=== PATIENT | female | born 1940 | race Caucasian/White ===

== ENCOUNTER → 2018-08-12 13:00 | Oncology outpatient (ONC) | payer OTHER, SELFPAY ==
--- NOTE | 2018-04-15 15:50 | P.CONONC_ITS ---
History of Present Illness - Data of Consult Patient: new to practice Consult date: 04/15/18 Requesting Physician: Eden Zacarias PA-C Primary Care Provider: Eden Zacarias PA-C - Consult Narrative Reason for consult: neutropenia Narrative: Nelida Acosta is a 78 year old female medical comorbidities most notable for hypertension, afib and hyperlipidemia. Patient has been followed by her primary care provider Eden pak for quite a few years. Patient has been getting labs probably about once every 6 months. On September 11, 2017, CBC showed WBC 3.1, ANC 1.4, hemoglobin 12.8, hematocrit 37.7. Follow-up testing on March 14, 2018 showed WBC 2.8, absolute neutrophil count 1.2, hemoglobin 12.3 , hematocrit 37.5, and platelets 259. Given the declining total white blood cell count and ANC, patient was referred to Hematology for further evaluation. Patient said that except for aspirin which was recently started because of atrial fibrillation, patient has not taking any new medications. He has been taking losartan metoprolol and simvastatin for a long period of time. Patient reported that she feels a little bit more fatigue but not much. The patient thought that it might be due to the atrial fibrillation. 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. Patient has yet to identify another furniture upholsterer apprentice for follow- up. Patient denies any fever or chills. He denies any shortness of breath or chest pain. He denies any diarrhea. Patient reports mild constipation and is using probiotics with some effect. Patient reports pain?: No Home Medications and Allergies Home Medications Medication Instructions Recorded Confirmed Type Losartan/HCTZ (Hyzaar 50-12.5 1 tab PO Q DAY #0 07/20/10 History Tablet) Simvastatin (Zocor) 40 mg PO HS #0 07/20/10 History L. acidophilus-L. rhamnosus 04/15/18 History [Probiotic] ascorbic acid (vitamin C) [Vitamin 500 mg PO DAILY 04/15/18 04/15/18 History C] aspirin 325 mg PO DAILY 04/15/18 04/15/18 History cholecalciferol (vitamin D3) 2,000 unit PO DAILY 04/15/18 04/15/18 History [Vitamin D3] diazepam [Valium] 2 mg PO Q8H PRN 04/15/18 04/15/18 History fexofenadine 180 mg PO DAILY 04/15/18 04/15/18 History ibuprofen-diphenhydramine cit 2 cap PO BEDTIME PRN 04/15/18 04/15/18 History [Advil PM] metoprolol tartrate 12.5 mg PO PRN PRN 04/15/18 04/15/18 History Allergies Allergy/AdvReac Type Severity Reaction Status Date / Time Penicillins [PENICILLINS] Allergy Unknown Unverified 09/12/17 11:55 Medical History - Medical, Surgical, Family History Medical History: Medical History (Last Reviewed 04/15/18 @ 17:59 by Damian Espinoza MD) Allergic rhinitis, seasonal Atrial fibrillation with RVR Basal cell carcinoma (BCC) of eyelid Onset Date: ~04/2003 History of uterine fibroid Onset Date: ~1990 Hyperlipidemia Hypertension PMR (polymyalgia rheumatica) Surgical History: Surgical History (Last Reviewed 04/15/18 @ 17:59 by Damian Espinoza MD) H/O laparoscopy Onset Date: ~1990 History of left cataract surgery Onset Date: ~09/2015 History of right cataract surgery Onset Date: ~10/2015 Family History: Family History (Last Reviewed 04/15/18 @ 17:59 by Damian Espinoza MD) Father Congestive heart failure Mother COPD (chronic obstructive pulmonary disease) Review of Systems All systems PM: reviewed and no additional remarkable complaints except as stated Exam Vital signs: Temp 98.0 F 04/15/18 16:06 Pulse 59 L 04/15/18 16:06 Resp 18 04/15/18 16:06 BP 154/70 H 04/15/18 16:06 Pulse Ox 98 04/15/18 16:06 ECOG 1 - Constitutional positive no acute distress, positive average body habitus, positive cooperative - Routine HEENT Exam Head: Present: normocephalic, atraumatic Eye: Present: EOMI, PERRL, normal accommodation. Absent: conjunctival icterus ENT: Present: mucous membranes moist - Routine Neck Exam Present: supple. Absent: lymphadenopathy, thyromegaly, tracheal deviation - Routine Respiratory Exam Present: Clear to auscultation bilaterally. Absent: accessory muscle use, rales , respiratory distress, rhonchi, stridor, wheezes, crackles - Routine Cardiovascular Exam Present: RRR, S1, S2. Absent: murmur, gallop, rubs - Routine Abdominal Exam Present: soft, normoactive bowel sounds. Absent: organomegaly - Routine Neurological Exam Present: alert, oriented X3, CN II-XII intact, moving all extremities, normal tone, normal speech. Absent: sensory deficit, motor deficit - Routine Psychiatric Exam Present: normal affect, normal thought process, cooperative, good insight, good judgment Results - Labs Reviewed. See HPI Assessment and Plan (1) Neutropenia Problem details: Labs findings without associated signs or symptoms: On September, WBC 3.1, ANC 1.4, hemoglobin 12.8, hematocrit 37.7. Follow-up testing on March 14, 2018: WBC 2.8, absolute neutrophil count 1.2, hemoglobin 12.3, hematocrit 37.5, and platelets 259. Assessment: I reviewed the available laboratory tests with the patient. Clinically patient does not have any evidence of opportunistic infection. I explained to the patient that the most common cause for neutropenia is medications. However patient said that except for aspirin, she is not taking any new medications. Next I talked with her that vitamin B12 and folic acid deficiency sometimes also are associated with neutropenia. If there is no evidence of the above, primary hematological disorder is a differential diagnosis including multiple myeloma, or myelodysplastic syndrome etc. We will obtain screening laboratory tests first, and then will decide if bone marrow aspiration biopsy is indicated. Plan: 1. CBC, CMP, B2M, LDH, SPEP, B12, folic acid 2. RTC in 2-3 weeks for follow up visit to discuss if BMA/Bx is indicated.
[2018-04-15 16:06] VITALS: BP 154/70; PULSE 59; RESP 18; TEMP 36.7; O2SAT 98
[2018-04-16 14:19] LABS: Add Manual Diff / Slide Review NO; Basophils Percent Auto 0.9 % (0-2); Eosinophils Percent Auto 2.3 % (2-4); Hematocrit 36.5 % (36-46); Hemoglobin 12.5 g/dL (12.0-16.0); Lymphocytes Percent Auto 24.8 % (25-40); Mean Corpuscular HGB Conc 34.2 % (30-36); Mean Corpuscular Hemoglobin 31.5 PG (26-34); Mean Corpuscular Volume 92.1 fL (80-100); Monocytes Percent Auto 14.3 % (3-14); Neutrophils Absolute Auto 2200 /uL (3000-5900); Neutrophils Percent Auto 57.7 % (50-75); Platelet Count 239 X10^3/uL (150-400); Red Blood Cell Count 3.96 X10^6/uL (4.0-5.2); Red Cell Distribution Width 12.8 % (11.6-14.8); White Blood Cell Count 3.8 X10^3/uL (4.5-11.0)
[2018-04-16 14:35] LABS: Alanine Aminotransferase 21 IU/L (9-52); Albumin 4.6 g/dL (3.5-5.0); Albumin Globulin Ratio 1.8 (1.0-2.8); Alkaline Phosphatase 42 U/L (38-126); Aspartate Aminotransferase 25 IU/L (14-36); BUN Creatinine Ratio 21.3 (6-22); Bilirubin Total 0.5 mg/dL (0.2-1.3); Blood Urea Nitrogen 17 mg/dL (7-17); Calcium 9.2 mg/dL (8.4-10.2); Carbon Dioxide 29 mmol/L (22-32); Chloride 92 mmol/L (98-107); Estimated Glomerular Filt Rate > 60.0 mL/min (>60); Globulin 2.6 g/dL (1.7-4.1); Glucose 98 mg/dL (80-110); HEMOLYSIS < 15 (0-50); Lactate Dehydrogenase 397 U/L (313-618); Potassium 3.1 mmol/L (3.4-5.1); Sodium 135 mmol/L (137-145); Total Protein 7.2 g/dL (6.3-8.2)
[2018-04-16 15:41] LABS: Folate 14.7 ng/mL (2.76-20.0); Vitamin B12 604 pg/mL (239-931)
[2018-04-18 21:11] LABS: Beta-2-Microglobulin 2.19 mg/L (< 2.52)
[2018-04-18 21:29] LABS: Albumin 4.2 g/dL (3.8-4.8); Alpha 1 Globulin 0.3 g/dL (0.2-0.3); Alpha 2 Globulin 0.6 g/dL (0.5-0.9); Beta 1 Globulin 0.4 g/dL (0.4-0.6); Gamma Globulin 0.8 g/dL (0.8-1.7); Protein, Total 6.6 g/dL (6.1-8.1)
--- NOTE | 2018-04-22 16:17 | P.PNONC_ITS ---
PN -Subjective Interval history: She came here today for follow-up visit. Patient has a recently found mild neutropenia of unknown etiology. Patient reports no fever and no chills. No nausea no vomiting. No abdominal pain no diarrhea and no constipation. She had blood work done on 04/16/2018. The total white cell count is 3.8, ANC 2.2. Vitamin B12 folic acid level are normal. Serum protein electrophoresis is normal pattern. Oncological history Nelida Acosta is a 78 year old female medical comorbidities most notable for hypertension, afib and hyperlipidemia. Patient has been followed by her primary care provider Eden pak for quite a few years. Patient has been getting labs probably about once every 6 months. On September 11, 2017, CBC showed WBC 3.1, ANC 1.4, hemoglobin 12.8, hematocrit 37.7. Follow-up testing on March 14, 2018 showed WBC 2.8, absolute neutrophil count 1.2, hemoglobin 12.3 , hematocrit 37.5, and platelets 259. Given the declining total white blood cell count and ANC, patient was referred to Hematology for further evaluation. Patient said that except for aspirin which was recently started because of atrial fibrillation, patient has not taking any new medications. He has been taking losartan metoprolol and simvastatin for a long period of time. Patient reported that she feels a little bit more fatigue but not much. The patient thought that it might be due to the atrial fibrillation. 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 Patient has yet to identify another circuit court clerk for follow- up. Patient denies any fever or chills. He denies any shortness of breath or chest pain. He denies any diarrhea. Patient reports mild constipation and is using probiotics with some effect. - Additional ROS All systems PM: reviewed and no additional remarkable complaints except as stated Home Medications and Allergies Home Medications Medication Instructions Recorded Confirmed Type Losartan/HCTZ (Hyzaar 50-12.5 1 tab PO Q DAY #0 07/20/10 History Tablet) Simvastatin (Zocor) 40 mg PO HS #0 07/20/10 History L. acidophilus-L. rhamnosus 04/15/18 History [Probiotic] ascorbic acid (vitamin C) [Vitamin 500 mg PO DAILY 04/15/18 04/15/18 History C] aspirin 325 mg PO DAILY 04/15/18 04/15/18 History cholecalciferol (vitamin D3) 2,000 unit PO DAILY 04/15/18 04/15/18 History [Vitamin D3] diazepam [Valium] 2 mg PO Q8H PRN 04/15/18 04/15/18 History fexofenadine 180 mg PO DAILY 04/15/18 04/15/18 History ibuprofen-diphenhydramine cit 2 cap PO BEDTIME PRN 04/15/18 04/15/18 History [Advil PM] metoprolol tartrate 12.5 mg PO PRN PRN 04/15/18 04/15/18 History Allergies Allergy/AdvReac Type Severity Reaction Status Date / Time Penicillins [PENICILLINS] Allergy Unknown Unverified 09/12/17 11:55 Exam Vital signs: Last Vital Signs Temp 98.0 F 04/15/18 16:06 Pulse 59 L 04/15/18 16:06 Resp 18 04/15/18 16:06 BP 154/70 H 04/15/18 16:06 Pulse Ox 98 04/15/18 16:06 ECOG 1 - Constitutional positive no acute distress, positive average body habitus, positive cooperative - Routine HEENT Exam Head: Present: normocephalic, atraumatic Eye: Present: EOMI, PERRL, normal accommodation. Absent: conjunctival icterus ENT: Present: mucous membranes moist - Routine Neck Exam Present: supple. Absent: lymphadenopathy, thyromegaly - Routine Respiratory Exam Present: Clear to auscultation bilaterally. Absent: wheezes - Routine Cardiovascular Exam Present: RRR, S1, S2. Absent: murmur, gallop, rubs - Routine Abdominal Exam Present: soft, normoactive bowel sounds. Absent: tenderness, organomegaly - Routine Extremities Exam Absent: edema - Routine Neurological Exam Present: alert, oriented X3, CN II-XII intact, normal reflexes. Absent: sensory deficit, motor deficit - Routine Psychiatric Exam Present: normal affect, normal thought process, cooperative, good insight, good judgment Results - Labs Laboratory Last Values WBC 3.8 X10^3/uL (4.5-11.0) L 04/16/18 14:00 RBC 3.96 X10^6/uL (4.0-5.2) L 04/16/18 14:00 Hgb 12.5 g/dL (12.0-16.0) 04/16/18 14:00 Hct 36.5 % (36-46) 04/16/18 14:00 MCV 92.1 fL (80-100) 04/16/18 14:00 MCH 31.5 PG (26-34) 04/16/18 14:00 MCHC 34.2 % (30-36) 04/16/18 14:00 RDW 12.8 % (11.6-14.8) 04/16/18 14:00 Plt Count 239 X10^3/uL (150-400) 04/16/18 14:00 Neut % (Auto) 57.7 % (50-75) 04/16/18 14:00 Lymph % (Auto) 24.8 % (25-40) L 04/16/18 14:00 [place] % (Auto) 14.3 % (3-14) H 04/16/18 14:00 Eos % (Auto) 2.3 % (2-4) 04/16/18 14:00 Baso % (Auto) 0.9 % (0-2) 04/16/18 14:00 Neut # (Auto) 2200 /uL (0153-6629) L 04/16/18 14:00 Sodium 135 mmol/L (137-145) L 04/16/18 14:00 Potassium 3.1 mmol/L (3.4-5.1) L 04/16/18 14:00 Chloride 92 mmol/L (98-107) L 04/16/18 14:00 Carbon Dioxide 29 mmol/L (22-32) 04/16/18 14:00 BUN 17 mg/dL (7-17) 04/16/18 14:00 Creatinine 0.80 mg/dL (0.52-1.04) 04/16/18 14:00 Estimated GFR > 60.0 mL/min (>60) 04/16/18 14:00 BUN/Creatinine Ratio 21.3 (6-22) 04/16/18 14:00 Glucose 98 mg/dL (80-110) 04/16/18 14:00 Calcium 9.2 mg/dL (8.4-10.2) 04/16/18 14:00 Total Bilirubin 0.5 mg/dL (0.2-1.3) 04/16/18 14:00 AST 25 IU/L (14-36) 04/16/18 14:00 ALT 21 IU/L (9-52) 04/16/18 14:00 Alkaline Phosphatase 42 U/L (38-126) 04/16/18 14:00 Lactate Dehydrogenase 397 U/L (313-618) 04/16/18 14:00 Serum Total Protein 6.6 g/dL (6.1-8.1) 04/16/18 14:00 Total Protein 7.2 g/dL (6.3-8.2) 04/16/18 14:00 Albumin 4.2 g/dL (3.8-4.8) 04/16/18 14:00 Globulin 2.6 g/dL (1.7-4.1) 04/16/18 14:00 Albumin/Globulin Ratio 1.8 (1.0-2.8) 04/16/18 14:00 Nqeie-2-Ymgokepws 0.3 g/dL (0.2-0.3) 04/16/18 14:00 Vujuy-9-Mngzfbcat 0.6 g/dL (0.5-0.9) 04/16/18 14:00 Xezl-9-Bmvpbmjc 0.4 g/dL (0.4-0.6) 04/16/18 14:00 Dgyi-4-Ihofuyax 0.3 g/dL (0.2-0.5) 04/16/18 14:00 Wkpu-9-Wxeujfeqlejzp 2.19 mg/L (< 2.52) 04/16/18 14:00 Gamma Globulins 0.8 g/dL (0.8-1.7) 04/16/18 14:00 Abnorm Protein Band 1 Not Reportable 04/16/18 14:00 Abnorm Protein Band 2 Not Reportable 04/16/18 14:00 Abn Gamma Band 3 Serum Not Reportable 04/16/18 14:00 PEP Comment See note 04/16/18 14:00 Vitamin B12 604 pg/mL (239-931) 04/16/18 14:00 Folate 14.7 ng/mL (2.76-20.0) 04/16/18 14:00 Assessment and Plan (1) Neutropenia Problem details: Labs findings without associated signs or symptoms: On September, WBC 3.1, ANC 1.4, hemoglobin 12.8, hematocrit 37.7. Follow-up testing on March 14, 2018: WBC 2.8, absolute neutrophil count 1.2, hemoglobin 12.3, hematocrit 37.5, and platelets 259. Assessment: I reviewed the available laboratory tests with the patient. Patient has a normal vitamin B12 and normal fully can see level. Serum protein electrophoresis is also normal. Furthermore white cell count and ANC have increased and almost normalized. I talked with the patient that most likely it is an unknown environmental factor transiently causing fluctuations of the white cell count. I will continue current active surveillance. Plan: 1. RTC in 3 months, check CBC, CMP prior to the visit.
[2018-07-17 15:25] LABS: Add Manual Diff / Slide Review NO; Basophils Absolute Auto 0 /uL (0-100); Eosinophils Absolute Auto 100 /uL (0-450); Eosinophils Percent Auto 1.1 % (2-4); Hematocrit 38.3 % (36-46); Hemoglobin 13.1 g/dL (12.0-16.0); Lymphocytes Absolute Auto 1100 /uL (1100-4500); Lymphocytes Percent Auto 23.6 % (25-40); Mean Corpuscular HGB Conc 34.2 % (30-36); Mean Corpuscular Hemoglobin 31.3 PG (26-34); Mean Corpuscular Volume 91.6 fL (80-100); Monocytes Absolute Auto 500 /uL (0-900); Monocytes Percent Auto 11.2 % (3-14); Neutrophils Absolute Auto 3100 /uL (1500-7000); Neutrophils Percent Auto 63.1 % (50-75); Platelet Count 253 X10^3/uL (150-400); Red Blood Cell Count 4.18 X10^6/uL (4.0-5.2); Red Cell Distribution Width 12.6 % (11.6-14.8); White Blood Cell Count 4.9 X10^3/uL (4.5-11.0)
[2018-07-17 15:40] LABS: Alanine Aminotransferase 22 IU/L (9-52); Albumin 4.6 g/dL (3.5-5.0); Albumin Globulin Ratio 1.6 (1.0-2.8); Alkaline Phosphatase 43 U/L (38-126); Aspartate Aminotransferase 27 IU/L (14-36); BUN Creatinine Ratio 15.6 (6-22); Bilirubin Total 0.6 mg/dL (0.2-1.3); Blood Urea Nitrogen 14 mg/dL (7-17); Calcium 9.4 mg/dL (8.4-10.2); Carbon Dioxide 28 mmol/L (22-32); Chloride 91 mmol/L (98-107); Estimated Glomerular Filt Rate > 60.0 mL/min (>60); Globulin 2.8 g/dL (1.7-4.1); Glucose 119 mg/dL (80-110); HEMOLYSIS < 15 (0-50); Sodium 132 mmol/L (137-145); Total Protein 7.4 g/dL (6.3-8.2)
[2018-08-12 13:13] VITALS: BP 134/79; PULSE 65; RESP 18; TEMP 36.8; O2SAT 99
--- NOTE | 2018-08-12 13:16 | P.PNONC_ITS ---
PN -Subjective Interval history: She came here today for follow-up visit. Patient has a recently found mild neutropenia of unknown etiology. She had blood work done on 04/16/2018. The total white cell count is 3.8, ANC 2.2. Vitamin B12 folic acid level are normal. Serum protein electrophoresis is normal pattern. Therefore we decided continue to follow. Patient presents here today for scheduled visits. Patient underwent laboratory tests on 07/17/2018. The total white cell count is 4.9, hemoglobin 13.1 and platelets 253. Patient reports no fever and no chills. No nausea no vomiting. No abdominal pain no diarrhea and no constipation. Oncological history Nelida Acosta is a 78 year old female medical comorbidities most notable for hypertension, afib and hyperlipidemia. Patient has been followed by her primary care provider Eden pak for quite a few years. Patient has been getting labs probably about once every 6 months. On September 11, 2017, CBC showed WBC 3.1, ANC 1.4, hemoglobin 12.8, hematocrit 37.7. Follow-up testing on March 14, 2018 showed WBC 2.8, absolute neutrophil count 1.2, hemoglobin 12.3, hematocrit 37.5, and platelets 259. Given the declining total white blood cell count and ANC, patient was referred to Hematology for further evaluation. Patient said that except for aspirin which was recently started because of atrial fibrillation, patient has not taking any new medications. He has been taking losartan metoprolol and simvastatin for a long period of time. Patient reported that she feels a little bit more fatigue but not much. The patient thought that it might be due to the atrial fibrillation. Her application systems engineer has left [facility]. Patient has yet to identify another application systems engineer for follow-up. Patient denies any fever or chills. He denies any shortness of breath or chest pain. He denies any diarrhea. Patient reports mild constipation and is using pro biotics with some effect. - Additional ROS All systems PM: reviewed and no additional remarkable complaints except as stated Home Medications and Allergies Home Medications Medication Instructions Recorded Confirmed Type Losartan/HCTZ (Hyzaar 50-12.5 1 tab PO Q DAY #0 07/20/10 08/12/18 History Tablet) L. acidophilus-L. rhamnosus 04/15/18 07/17/18 History [Probiotic] ascorbic acid (vitamin C) [Vitamin 500 mg PO DAILY 04/15/18 08/12/18 History C] aspirin 325 mg PO DAILY 04/15/18 08/12/18 History cholecalciferol (vitamin D3) 2,000 unit PO DAILY 04/15/18 08/12/18 History [Vitamin D3] diazepam [Valium] 2 mg PO Q8H PRN 04/15/18 08/12/18 History ibuprofen-diphenhydramine cit 2 cap PO BEDTIME PRN 04/15/18 08/12/18 History [Advil PM] simvastatin 20 mg tablet 20 mg PO QPM 07/17/18 08/12/18 History Allergies Allergy/AdvReac Type Severity Reaction Status Date / Time Penicillins [PENICILLINS] Allergy Unknown Unverified 07/17/18 15:00 Exam Vital signs: Last Vital Signs Temp 98.2 F 08/12/18 13:13 Pulse 65 08/12/18 13:13 Resp 18 08/12/18 13:13 BP 134/79 08/12/18 13:13 Pulse Ox 99 08/12/18 13:13 ECOG 1 Narrative: Constitutional: WDWN, NAD, well groomed, pleasant and cooperative. HEENT: NCAT, EOMI, PERRLA, anicteric sclera. Neck: Supple, No palpable thyromegaly or lymphadenopathy. Respiratory: Clear to auscultation, and no wheezes or rales or rubs. Cardiovascular: RRR, S1 and S2 normal, no M/G/R. No JVD. Abdomen: Soft, NTND, BS normal, no palpable organomegaly, no hernia, no palpable masses. Extremities: No LE pitting edema. Musculoskeletal: normal gait and station Skin: no rashes, no ulcers, no petechiae Neurological: AOx3, CN II-XII grossly intact. No focal motor or sensory deficit. Psychiatric: Good judgment and insight; normal affect; normal thought process; cooperative, no depression, no anxiety. Results - Labs Laboratory Last Values WBC 4.9 X10^3/uL (4.5-11.0) 07/17/18 14:45 RBC 4.18 X10^6/uL (4.0-5.2) 07/17/18 14:45 Hgb 13.1 g/dL (12.0-16.0) 07/17/18 14:45 Hct 38.3 % (36-46) 07/17/18 14:45 MCV 91.6 fL (80-100) 07/17/18 14:45 MCH 31.3 PG (26-34) 07/17/18 14:45 MCHC 34.2 % (30-36) 07/17/18 14:45 RDW 12.6 % (11.6-14.8) 07/17/18 14:45 Plt Count 253 X10^3/uL (150-400) 07/17/18 14:45 Neut % (Auto) 63.1 % (50-75) 07/17/18 14:45 Lymph % (Auto) 23.6 % (25-40) L 07/17/18 14:45 [place] % (Auto) 11.2 % (3-14) 07/17/18 14:45 Eos % (Auto) 1.1 % (2-4) L 07/17/18 14:45 Baso % (Auto) 1.0 % (0-2) 07/17/18 14:45 Neut # (Auto) 3100 /uL (6505-5547) 07/17/18 14:45 Lymph # (Auto) 1100 /uL (2145-3829) 07/17/18 14:45 [place] # (Auto) 500 /uL (0-900) 07/17/18 14:45 Eos # (Auto) 100 /uL (0-450) 07/17/18 14:45 Baso # (Auto) 0 /uL (0-100) 07/17/18 14:45 Sodium 132 mmol/L (137-145) L 07/17/18 14:45 Potassium 3.0 mmol/L (3.4-5.1) L 07/17/18 14:45 Chloride 91 mmol/L (98-107) L 07/17/18 14:45 Carbon Dioxide 28 mmol/L (22-32) 07/17/18 14:45 BUN 14 mg/dL (7-17) 07/17/18 14:45 Creatinine 0.90 mg/dL (0.52-1.04) 07/17/18 14:45 Estimated GFR > 60.0 mL/min (>60) 07/17/18 14:45 BUN/Creatinine Ratio 15.6 (6-22) 07/17/18 14:45 Glucose 119 mg/dL (80-110) H 07/17/18 14:45 Calcium 9.4 mg/dL (8.4-10.2) 07/17/18 14:45 Total Bilirubin 0.6 mg/dL (0.2-1.3) 07/17/18 14:45 AST 27 IU/L (14-36) 07/17/18 14:45 ALT 22 IU/L (9-52) 07/17/18 14:45 Alkaline Phosphatase 43 U/L (38-126) 07/17/18 14:45 Lactate Dehydrogenase 397 U/L (313-618) 04/16/18 14:00 Serum Total Protein 6.6 g/dL (6.1-8.1) 04/16/18 14:00 Total Protein 7.4 g/dL (6.3-8.2) 07/17/18 14:45 Albumin 4.6 g/dL (3.5-5.0) 07/17/18 14:45 Globulin 2.8 g/dL (1.7-4.1) 07/17/18 14:45 Albumin/Globulin Ratio 1.6 (1.0-2.8) 07/17/18 14:45 Llwex-6-Smndzztge 0.3 g/dL (0.2-0.3) 04/16/18 14:00 Dhyfk-2-Hpycsjnem 0.6 g/dL (0.5-0.9) 04/16/18 14:00 Fals-2-Dzpiyqce 0.4 g/dL (0.4-0.6) 04/16/18 14:00 Scvm-6-Mfxfjmso 0.3 g/dL (0.2-0.5) 04/16/18 14:00 Qsdn-1-Crbfthupvokit 2.19 mg/L (< 2.52) 04/16/18 14:00 Gamma Globulins 0.8 g/dL (0.8-1.7) 04/16/18 14:00 Abnorm Protein Band 1 Not Reportable 04/16/18 14:00 Abnorm Protein Band 2 Not Reportable 04/16/18 14:00 Abn Gamma Band 3 Serum Not Reportable 04/16/18 14:00 PEP Comment See note 04/16/18 14:00 Vitamin B12 604 pg/mL (239-931) 04/16/18 14:00 Folate 14.7 ng/mL (2.76-20.0) 04/16/18 14:00 Assessment and Plan (1) Neutropenia Problem details: Labs findings without associated signs or symptoms: On September 11, 2017, WBC 3.1, ANC 1.4, hemoglobin 12.8, hematocrit 37.7. Follow-up testing on March 14, 2018: WBC 2.8, absolute neutrophil count 1.2, hemoglobin 12.3, hematocrit 37.5, and platelets 259. Follow-up on 07/17/2018 showed WBC 4.9, hemoglobin 13.1, platelets 253. Assessment and Plan: I reviewed the available laboratory tests from 07/17/2018. His leukopenia has completely resolved. No other abnormal blood counts identified. Patient asked if she can follow up with her primary care provider and if abnormal blood counts happen again, she will call us for follow-up. Gerard carbajal
== END ==
PROVIDERS: Family Provider Physician Assistant; PCP Physician Assistant; Visit Provider Internal Medicine Hematology & Oncology
DX: D70.9 Neutropenia, unspecified (principal); I48.91 Unspecified atrial fibrillation; I10 Essential (primary) hypertension; E78.5 Hyperlipidemia, unspecified; Z79.82 Long term (current) use of aspirin
CPT/HCPCS: 36415; 80053; 82232; 82607; 82746; 83615; 84155; 84165; 85025; 99204; 99213; 99214

== ENCOUNTER 2019-04-10 09:49 | Day surgery (SDC) | payer OTHER, SELFPAY ==
--- NOTE | 2019-04-10 | PATH_ITS ---
[facility] Accession Number: [id number] . 01 Material submitted: . PART A: colon - CECAL POLYP X4 PART B: anal skin - ANAL POLYP . 02 Diagnosis: A. Cecum, Polyps x4, Biopsies: Multiple fragments of sessile serrated adenoma. . B. Anal Polyp, Biopsy: Tubular adenoma. MRV 04/11/2019 1026 Local . 02 Electronically signed: . Louise Hidalgo MD, Pathologist NPI- [id number] . 01 Gross description: . Part A: CECAL POLYP X4: Received in formalin are multiple fragment(s) of lewis, soft tissue measuring 0.1 x 0.1 x 0.1 cm to 0.6 x 0.5 x 0.5 cm submitted entirely in 1 cassette(s) Part B: ANAL POLYP: Received in formalin are 4 fragment(s) of lewis, soft tissue measuring 0.2 x 0.2 x 0.2 cm to 0.4 x 0.4 x 0.3 cm submitted entirely in 1 cassette(s) /[facility] [place] 04/10/2019 2044 Local . 02 Pathologist provided ICD-10: D12.0, D12.8 . 02 CPT . 949940, [id number] Performed at: 01 [facility] [address], [place], [place] [id number] MD Bernardino Alas MD Phone: [phone] Performed at: 02 [facility] [address] [place], [place] [id number] MD Louise Hidalgo MD Phone: [phone]
[2019-04-10 10:20] VITALS: BP 148/63; PULSE 58; RESP 16; TEMP 36.6; O2SAT 100; BMI 23.5
[2019-04-10] MEDS: SODIUM CHLORIDE 0.9% 1,000 ML 200 ML IV (10:28)
--- NOTE | 2019-04-10 10:56 | P.HP_ITS ---
History of Present Illness History of Present Illness Date Patient Seen: 04/10/19 Time Patient Seen: 10:51 Chief complaint: [id number] Narrative: The patient is a woman here for a colonoscopy. Last exam was 3 years ago. I removed numerous polyps and she is brought back a little early because of that. Patient History Medical History Allergic rhinitis, seasonal (Acute) Atrial fibrillation with RVR (Acute) Basal cell carcinoma (BCC) of eyelid (Acute ~04/2003) History of uterine fibroid (Acute ~1990) Hyperlipidemia (Acute) Hypertension (Acute) PMR (polymyalgia rheumatica) (Acute) Surgical History H/O laparoscopy (Acute ~1990) History of left cataract surgery (Acute ~09/2015) History of right cataract surgery (Acute ~10/2015) Family & Social History Family History Father Congestive heart failure Mother COPD (chronic obstructive pulmonary disease) Social History: household members spouse Tobacco & Substance use: Smoking Status Former smoker Meds Home Medications and Allergies Home Medications Medication Instructions Recorded Confirmed Type Losartan/HCTZ (Hyzaar 50-12.5 1 tab PO Q DAY #0 07/20/10 04/10/19 History Tablet) ascorbic acid (vitamin C) [Vitamin 500 mg PO DAILY 04/15/18 04/10/19 History C] aspirin 325 mg PO DAILY 04/15/18 04/10/19 History cholecalciferol (vitamin D3) 2,000 unit PO DAILY 04/15/18 04/10/19 History [Vitamin D3] diazepam [Valium] 2 mg PO Q8H PRN 04/15/18 04/10/19 History ibuprofen-diphenhydramine cit 2 cap PO BEDTIME PRN 04/15/18 04/10/19 History [Advil PM] simvastatin 20 mg tablet 20 mg PO QPM 07/17/18 04/10/19 History Allergies Allergy/AdvReac Type Severity Reaction Status Date / Time Penicillins [PENICILLINS] Allergy Unknown Verified 04/10/19 10:04 Review of Systems Review of Systems ROS Unobtainable: All systems reviewed & are unremarkable except as noted in HPI and below Cardiovascular Comments: History of AFib that by her report has resolved. Respiratory Comments: History of sleep apnea. She is unable to use a machine. Gastrointestinal Comments: Chronic constipation Exam Vital Signs (past 8 hours): - 04/10/19 10:20 Temperature 97.8 F Pulse Rate 58 L Respiratory Rate 16 Blood Pressure 148/63 H Pulse Oximetry 100 Oxygen Delivery Method Room Air Narrative Exam Narrative: Pleasant cooperative patient no apparent distress. Lungs are clear to auscultation. No rales or rhonchi. Heart regular rate and rhythm no murmur gallop. Abdomen is soft nontender without mass. No obvious hernias. P atient is alert and oriented x3. Assessment & Plan Assessment & Plan narrative: The patient for a screening colonoscopy. I have discussed the procedure with them. Risks of bleeding, perforation which would necessitate major operation, failure to find remove all lesions, the potential tattoo were all discussed. All questions were answered. They wished to proceed.
--- NOTE | 2019-04-10 10:59 | PM.PREOP ---
Pre-operative Note Interval Note History & Physical reviewed/Exam performed by Physician: Yes Changes to H&P: No ASA Class (for procedural sedation): III
--- NOTE | 2019-04-10 11:54 | PM.OP.ENDO ---
Operative Date/Time/Diagnoses Date of procedure: 04/10/19 Time of procedure: 11:54 Pre-op diagnosis: History of numerous polyps Post-op diagnosis: same (Numerous polyps. Melanosis coli. Diverticulosis.) Procedure & Clinicians Study performed: Colonoscopy with hot snare polypectomy and cauterization of multiple small lesions. Same procedure as scheduled: Yes Indications: Screening. History of multiple polyps. Last exam 3 years ago. Surgeon: Chris Bansal Procedure Notes SCOAP/Timeout: Performed Procedure in detail: The patient was placed in the left lateral decubitus position and underwent IV sedation directed by the surgeon consisting of fentanyl and Versed. Digital exam was unremarkable. The scope was inserted and advanced through the rectum into the sigmoid, descending, transverse, and ascending colon. I noted sigmoid diverticulosis. Had a very long tortuous colon. Pressure had to be applied along with a stiffener and reposition the patient ordered reach to cecum.. The cecum was reached identified by the ileocecal valve and the appendiceal opening. There was a flat polyp in the cecum which I biopsied and removed. There were multiple additional polyps from there to the hepatic flexure which I removed hot snared or biopsied and placed in the same container is a cecal lesion. The scope was gradually brought out and I cauterized the additional polyps I encountered. These were all tiny and may have represented lymphoid follicles or hyperplastic lesions. I think the only reason they stood out as because of her melanosis coli. The scope was gradually brought out. The scope ultimately was retroflexed in the rectum. The appearance was normal except for what appeared to be either a scar polypoid lesion. I snared it and removed it. It was placed in separate container.. The scope was then removed and the patient tolerated the procedure well. Prep was good. Scope withdrawal time: At least 10 min(total time 20) Sedation minutes: 52 Findings: diverticulosis and polyp Post-procedure Recommendations: Colonscopy in 3 years (If in good health) Follow up: as needed Disposition: PACU
[2019-04-10 11:55] VITALS: BP 128/52; PULSE 52; RESP 12; TEMP 36.4; O2SAT 92
[2019-04-10] MEDS: MIDAZOLAM 5 MG/5 ML VIAL IV (11:56)
[2019-04-10] MEDS: fentaNYL 250 MCG/5 ML INJ IV (11:57)
[2019-04-10 12:00] VITALS: BP 114/30; PULSE 50; RESP 13; O2SAT 92
[2019-04-10 12:05] VITALS: BP 128/55; PULSE 52; RESP 20; O2SAT 98
[2019-04-10 12:10] VITALS: BP 130/54; PULSE 52; RESP 15; O2SAT 97
[2019-04-10 12:20] VITALS: BP 110/60; PULSE 54; RESP 16; O2SAT 98
== END 2019-04-10 12:20 | disposition home or self-care (01) ==
PROVIDERS: PCP Physician Assistant; Visit Provider Specialist
PROC: 0DJD8ZZ Inspection of Lower Intestinal Tract, Via Natural or Artificial Opening Endoscopic (ICD-10-PCS; CPT 45378; principal; 2019-04-10 10:45)
DX: Z12.11 Encounter for screening for malignant neoplasm of colon (principal); Z86.010 Personal history of colon polyps; K57.30 Diverticulosis of large intestine without perforation or abscess without bleeding; K63.89 Other specified diseases of intestine; I48.91 Unspecified atrial fibrillation; I10 Essential (primary) hypertension; E78.5 Hyperlipidemia, unspecified; M35.3 Polymyalgia rheumatica; D12.0 Benign neoplasm of cecum; D12.8 Benign neoplasm of rectum
CPT/HCPCS: 45380; 45385; 99152; 99153; J2250; J3010

== ENCOUNTER → 2019-08-19 11:47 | Outpatient (CLI) | payer OTHER, SELFPAY ==
--- NOTE | 2019-08-19 | DI.RAD.S_ITS ---
PROCEDURE: XR WRIST LT MIN 3V INDICATIONS: Left wrist pain TECHNIQUE: 4 views of the wrist were acquired. COMPARISON: [facility], CR, XR HAND 3+ VIEWS BILATERAL, 10/09/2017, 10:18. FINDINGS: Bones: No fractures or dislocations. No suspicious bony lesions. Scaphoid view: No trauma but there is distal scaphoid degenerative change between the base of the trapezium and scaphoid itself. Also, mild to moderate degenerative osteoarthritis is seen at the base of the first metacarpal against the trapezium. Soft tissues: No suspicious soft tissue calcifications. IMPRESSION: No acute trauma found. Mild degenerative osteophytic change best seen at the interface between the distal scaphoid and the base of the trapezium. 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 This has not significantly worsened from the comparison and plain films from October of 2017. Dictated by: Parveen Buchanan M.D. on 08/19/2019 at 12:38 Approved by: Parveen Buchanan M.D. on 08/19/2019 at 12:39
== END ==
PROVIDERS: PCP Internal Medicine; Referring Provider Internal Medicine; Visit Provider Internal Medicine
DX: M25.532 Pain in left wrist (principal); M19.042 Primary osteoarthritis, left hand
CPT/HCPCS: 73110

== ENCOUNTER → 2019-10-03 09:42 | Outpatient (CLI) | payer OTHER, SELFPAY ==
--- NOTE | 2019-10-03 | DI.RAD.S_ITS ---
PROCEDURE: XR ANKLE RT MIN 3V INDICATIONS: Pain in right ankle TECHNIQUE: 3 views of the ankle were acquired. COMPARISON: None. FINDINGS: Bones: Comminuted and displaced fracture involving the base of the fifth metatarsal. Ankle mortise is normally aligned. No suspicious bony lesions. Mild midfoot osteoarthritic degenerative changes. Soft tissues: No tibiotalar joint effusion. Achilles tendon appears normal. IMPRESSION: Comminuted, displaced fifth metatarsal fracture. Dictated by: Wendie Rasmussen MD, PhD on 10/03/2019 at 12:07 Approved by: Wendie Rasmussen MD, PhD on 10/03/2019 at 12:09
== END ==
PROVIDERS: PCP Internal Medicine; Referring Provider Internal Medicine; Visit Provider Internal Medicine
DX: M25.571 Pain in right ankle and joints of right foot (principal); S92.351A Displaced fracture of fifth metatarsal bone, right foot, initial encounter for closed fracture; X58.XXXA Exposure to other specified factors, initial encounter
CPT/HCPCS: 73610

== ENCOUNTER → 2020-07-27 18:54 | Outpatient (ROUT) | payer OTHER, SELFPAY ==
[2020-07-27 19:21] LABS: Add Manual Diff / Slide Review NO; Basophils Absolute Auto 0 /uL (0-100); Basophils Percent Auto 0.7 % (0-2); Eosinophils Absolute Auto 100 /uL (0-450); Eosinophils Percent Auto 1.4 % (2-4); Hematocrit 35.6 % (36-46); Hemoglobin 12.1 g/dL (12.0-16.0); Lymphocytes Absolute Auto 1000 /uL (1100-4500); Lymphocytes Percent Auto 18.6 % (25-40); Mean Corpuscular HGB Conc 33.8 % (30-36); Mean Corpuscular Hemoglobin 31.2 PG (26-34); Mean Corpuscular Volume 92.2 fL (80-100); Monocytes Absolute Auto 700 /uL (0-900); Monocytes Percent Auto 12.5 % (3-14); Neutrophils Absolute Auto 3500 /uL (1500-7000); Neutrophils Percent Auto 66.8 % (50-75); Platelet Count 243 X10^3/uL (150-400); Red Blood Cell Count 3.86 X10^6/uL (4.0-5.2); Red Cell Distribution Width 12.8 % (11.6-14.8); White Blood Cell Count 5.2 X10^3/uL (4.5-11.0)
[2020-07-27 19:30] LABS: Alanine Aminotransferase 15 IU/L (<35); Albumin 4.2 g/dL (3.5-5.0); Albumin Globulin Ratio 1.5 (1.0-2.8); Alkaline Phosphatase 64 U/L (38-126); Aspartate Aminotransferase 28 IU/L (14-36); BUN Creatinine Ratio 21.1 (6-22); Bilirubin Total 0.5 mg/dL (0.2-1.3); Blood Urea Nitrogen 16 mg/dL (7-17); Carbon Dioxide 35 mmol/L (22-32); Chloride 93 mmol/L (98-107); Cholesterol 173 mg/dL (140-199); Estimated Glomerular Filt Rate > 60.0 mL/min (>60); Globulin 2.8 g/dL (1.7-4.1); Glucose 101 mg/dL (80-110); HDL Cholesterol 66 mg/dL (40-60); HEMOLYSIS < 15 (0-50); LDL Cholesterol Calculated 66 mg/dL (<100); Potassium 3.7 mmol/L (3.4-5.1); Sodium 132 mmol/L (137-145); Triglycerides 205 mg/dL (35-150)
[2020-07-27 20:00] LABS: TSH w/ Reflex to FT4 0.76 uIU/mL (0.47-4.68)
== END ==
PROVIDERS: PCP Internal Medicine; Visit Provider Internal Medicine
DX: I48.0 Paroxysmal atrial fibrillation (principal); E78.2 Mixed hyperlipidemia
CPT/HCPCS: 80053; 80061; 84443; 85025